=== PATIENT | female | born 1945 ===

== ENCOUNTER 2018-10-14 10:49 | Outpatient (CLI) | payer OTHER ==
[~2018-10-14] VITALS: Ht 167.6 cm; Wt 70.3 kg
== END 2018-10-14 11:10 | disposition home or self-care (01) ==
LOC: OFIC 805 10:49
DX: G96.0 Cerebrospinal fluid leak (principal); J30.89 Other allergic rhinitis; R09.82 Postnasal drip; R07.0 Pain in throat

== ENCOUNTER 2018-11-07 08:37 | Outpatient (CLI) | payer OTHER ==
[~2018-11-07] VITALS: Ht 152.4 cm; Wt 70.3 kg
== END 2018-11-07 15:00 | disposition home or self-care (01) ==
LOC: OFIC 805 08:37
DX: J30.89 Other allergic rhinitis (principal); R09.82 Postnasal drip; K21.0 Gastro-esophageal reflux disease with esophagitis; H61.23 Impacted cerumen, bilateral